=== PATIENT | female | born 1950 | race Caucasian/White ===

== ENCOUNTER 2019-01-29 11:05 | Outpatient (RCR) | payer MEDICARE, OTHER, SELFPAY | END 2019-02-19 00:01 | LOC: GILAB 11:05 | PROVIDERS: Family Provider Internal Medicine; Visit Provider Specialist | DX: G61.81 Chronic inflammatory demyelinating polyneuritis (principal) | CPT/HCPCS: 96365 ×4; 96366; G0463 ×4; J1561 ×4 ==

== ENCOUNTER 2019-03-13 11:00 | Outpatient (RCR) | payer MEDICARE, OTHER, SELFPAY ==
[2019-03-12 11:35] VITALS: BP 161/88; PULSE 82; RESP 18; TEMP 36.4; O2SAT 93
[2019-03-12 12:16] VITALS: BMI 29.0
--- NOTE | 2019-03-12 12:26 | SUR.OPER ---
IMMUNE GLOBULIN 34GMS INFUSION STARTED AT 11:55 AT 180MLS/HR.
[2019-03-12 12:31] VITALS: BP 148/90; PULSE 66; RESP 18; TEMP 36.7; O2SAT 93
[2019-03-13 11:18] VITALS: BP 153/98; PULSE 90; RESP 20; TEMP 36.8; O2SAT 95
[2019-03-13 11:44] VITALS: BMI 29.0
[2019-03-13 13:54] VITALS: BP 160/98; PULSE 73; RESP 18; TEMP 36.7; O2SAT 95
== END 2019-03-22 23:59 | disposition home or self-care (01) ==
LOC: GILAB 11:00
PROVIDERS: Family Provider Internal Medicine; Visit Provider Specialist
DX: G61.81 Chronic inflammatory demyelinating polyneuritis (principal)
CPT/HCPCS: 96365; 96366; J1561

== ENCOUNTER 2019-04-02 11:21 | Outpatient (RCR) | payer MEDICARE, OTHER, SELFPAY ==
[2019-04-02 11:40] VITALS: BP 161/95; PULSE 64; RESP 20; TEMP 36.6; O2SAT 95
[2019-04-02 11:45] VITALS: BMI 29.6
[2019-04-03 11:14] VITALS: BP 160/98; PULSE 67; RESP 18; TEMP 36.6; O2SAT 95
== END 2019-04-20 23:59 | disposition home or self-care (01) ==
LOC: GILAB 11:21
PROVIDERS: Family Provider Internal Medicine; PCP Specialist; Visit Provider Specialist
DX: G61.81 Chronic inflammatory demyelinating polyneuritis (principal)
CPT/HCPCS: 96365; J1561

== ENCOUNTER 2019-04-23 10:53 | Outpatient (RCR) | payer MEDICARE, OTHER, SELFPAY ==
[2019-04-23 11:18] VITALS: BP 162/76; PULSE 85; RESP 18; TEMP 36.3; O2SAT 95; BMI 29.9
[2019-04-24 11:00] VITALS: BP 182/98; PULSE 82; RESP 18; TEMP 37.3; O2SAT 94
== END 2019-05-21 23:59 | disposition home or self-care (01) ==
LOC: GILAB 10:53
PROVIDERS: Family Provider Internal Medicine; PCP Specialist; Visit Provider Specialist
DX: G61.81 Chronic inflammatory demyelinating polyneuritis (principal)
CPT/HCPCS: 96365; 96366; J1561

== ENCOUNTER 2019-07-16 10:59 | Outpatient (RCR) | payer MEDICARE, OTHER, SELFPAY ==
[2019-06-26 11:30] VITALS: BP 155/102; PULSE 73; RESP 18; TEMP 36.3; O2SAT 95; BMI 29.9
[2019-06-27 12:17] VITALS: BP 170/92; PULSE 67; RESP 16; TEMP 37.3
[2019-07-16 11:35] VITALS: BP 149/88; PULSE 73; RESP 18; TEMP 36.6; O2SAT 95
[2019-07-17 11:31] VITALS: BP 119/89; PULSE 76; RESP 18; TEMP 36.2; O2SAT 92
== END 2019-07-21 23:59 | disposition home or self-care (01) ==
LOC: GILAB 10:59
PROVIDERS: Visit Provider Specialist
DX: G61.81 Chronic inflammatory demyelinating polyneuritis (principal)
CPT/HCPCS: 96365; 96366; 96367; J1561

== ENCOUNTER 2019-08-07 11:43 | Outpatient (RCR) | payer MEDICARE, OTHER, SELFPAY ==
[2019-08-07 12:03] VITALS: BP 160/94; PULSE 74; RESP 16; TEMP 37.2; O2SAT 93
[2019-08-08 12:00] VITALS: BP 158/100; PULSE 90; RESP 18; TEMP 36.6; O2SAT 95
== END 2019-08-20 23:59 | disposition home or self-care (01) ==
LOC: GILAB 11:43
PROVIDERS: PCP Internal Medicine; Visit Provider Specialist
DX: G61.81 Chronic inflammatory demyelinating polyneuritis (principal)
CPT/HCPCS: 96365; J1561

== ENCOUNTER 2019-08-28 11:23 | Outpatient (RCR) | payer MEDICARE, OTHER, SELFPAY ==
[2019-08-28 11:50] VITALS: BP 165/110; PULSE 78; RESP 18; TEMP 37.3; O2SAT 95; BMI 30.7
[2019-09-18 11:35] VITALS: BP 160/95; PULSE 77; RESP 18; TEMP 36.6; O2SAT 95
== END 2019-09-20 23:59 | disposition home or self-care (01) ==
LOC: GILAB 11:23
PROVIDERS: PCP Internal Medicine; Visit Provider Specialist
DX: G61.81 Chronic inflammatory demyelinating polyneuritis (principal)
CPT/HCPCS: 96365; 96366; J1561

== ENCOUNTER 2019-10-09 11:14 | Outpatient (RCR) | payer MEDICARE, OTHER, SELFPAY ==
[2019-10-09 11:50] VITALS: BP 175/107; PULSE 70; RESP 18; TEMP 36.4; O2SAT 94; BMI 30.7
== END 2019-10-21 23:59 | disposition home or self-care (01) ==
LOC: GILAB 11:14
PROVIDERS: PCP Internal Medicine; Visit Provider Specialist
DX: G61.81 Chronic inflammatory demyelinating polyneuritis (principal)
CPT/HCPCS: 96365; 96366; J1561

== ENCOUNTER 2019-11-20 11:09 | Outpatient (RCR) | payer MEDICARE, OTHER, SELFPAY ==
[2019-10-30 11:59] VITALS: BP 137/85; PULSE 85; RESP 18; TEMP 36.8; O2SAT 93
[2019-10-30 14:29] VITALS: BMI 30.7
[2019-11-20 12:12] VITALS: BP 169/100; PULSE 95; RESP 18; TEMP 36.2; O2SAT 94
--- NOTE | 2019-11-20 12:16 | PC.NURSE ---
PATIENT TOOK BOTH PRE-MEDICATIONS (TYLENOL AND BENADRYL) BEFORE COMING FOR HER INFUSION.
== END 2019-11-20 23:59 | disposition home or self-care (01) ==
LOC: OPS 11:09
PROVIDERS: PCP Internal Medicine; Visit Provider Specialist
DX: G61.81 Chronic inflammatory demyelinating polyneuritis (principal)
CPT/HCPCS: 96365; 96366; J1561

== ENCOUNTER 2019-12-11 11:10 | Outpatient (RCR) | payer MEDICARE, OTHER, SELFPAY ==
[2019-12-11 11:36] VITALS: BP 176/114; PULSE 83; RESP 18; TEMP 36.6; O2SAT 94
== END 2019-12-21 23:59 | disposition home or self-care (01) ==
LOC: OPS 11:10
PROVIDERS: PCP Internal Medicine; Visit Provider Specialist
DX: G61.81 Chronic inflammatory demyelinating polyneuritis (principal)
CPT/HCPCS: 96365; 96366; J1561

== ENCOUNTER 2020-01-01 11:17 | Outpatient (RCR) | payer MEDICARE, OTHER, SELFPAY ==
[2020-01-01 11:53] VITALS: BP 157/103; PULSE 70; RESP 18; TEMP 36.7; O2SAT 96; BMI 30.7
== END 2020-01-20 23:59 | disposition home or self-care (01) ==
LOC: OPS 11:17
PROVIDERS: PCP Internal Medicine; Visit Provider Specialist
DX: G61.81 Chronic inflammatory demyelinating polyneuritis (principal)
CPT/HCPCS: 96365; 96366; J1561

== ENCOUNTER 2020-02-12 11:25 | Outpatient (RCR) | payer MEDICARE, OTHER, SELFPAY ==
[2020-02-12 10:45] VITALS: BMI 30.7
[2020-02-12 11:47] VITALS: BP 159/93; PULSE 76; RESP 18; TEMP 36.1; O2SAT 91
== END 2020-02-20 23:59 | disposition home or self-care (01) ==
LOC: OPS 11:25
PROVIDERS: PCP Internal Medicine; Visit Provider Specialist
DX: G61.81 Chronic inflammatory demyelinating polyneuritis (principal)
CPT/HCPCS: 96365; 96366; J1561

== ENCOUNTER 2020-03-04 11:20 | Outpatient (RCR) | payer MEDICARE, OTHER, SELFPAY ==
[2020-03-04 12:00] VITALS: BP 149/87; PULSE 79; RESP 18; TEMP 36.3; O2SAT 93
== END 2020-03-22 23:59 | disposition home or self-care (01) ==
LOC: OPS 11:20
PROVIDERS: PCP Internal Medicine; Visit Provider Specialist
DX: G61.81 Chronic inflammatory demyelinating polyneuritis (principal)
CPT/HCPCS: 96365; 96366; J1561

== ENCOUNTER 2020-03-25 12:08 | Outpatient (RCR) | payer MEDICARE, OTHER, SELFPAY ==
[2020-03-25 11:55] VITALS: BP 158/91; PULSE 116; RESP 18; TEMP 36.3; O2SAT 96
[2020-03-25 12:14] VITALS: BP 130/80; PULSE 89; RESP 18; TEMP 36.6; O2SAT 96
[2020-04-15 11:23] VITALS: BP 149/91; PULSE 83; RESP 18; TEMP 36.3; O2SAT 95
== END 2020-04-19 23:59 | disposition home or self-care (01) ==
LOC: OPS 12:08
PROVIDERS: PCP Internal Medicine; Visit Provider Specialist
DX: G61.81 Chronic inflammatory demyelinating polyneuritis (principal)
CPT/HCPCS: 96365; 96366; J1561

== ENCOUNTER 2020-04-15 11:00 | Outpatient (CLI) | payer MEDICARE, OTHER, SELFPAY ==
[2020-04-15 11:05] VITALS: BP 149/91; PULSE 83; RESP 18; TEMP 36.3; O2SAT 95
== END 2020-04-15 11:01 | disposition home or self-care (01) ==
LOC: OPS 11:00
PROVIDERS: PCP Internal Medicine; Visit Provider Specialist
DX: G61.81 Chronic inflammatory demyelinating polyneuritis (principal)
CPT/HCPCS: 96365; 96366; J1561

== ENCOUNTER → 2020-05-06 10:49 | Day surgery (SDC) | payer MEDICARE, OTHER, SELFPAY ==
[2020-05-06 10:53] VITALS: BMI 29.7
[2020-05-06 11:02] VITALS: BP 158/95; PULSE 81; RESP 18; TEMP 35.9; O2SAT 93
[2020-05-06 11:48] VITALS: BP 154/89; PULSE 67; RESP 18; O2SAT 91
== END ==
PROVIDERS: PCP Internal Medicine; Visit Provider Specialist
DX: G61.81 Chronic inflammatory demyelinating polyneuritis (principal)
CPT/HCPCS: 96365; 96366; J1561

== ENCOUNTER 2020-06-17 10:48 | Outpatient (RCR) | payer MEDICARE, OTHER, SELFPAY ==
[2020-05-27 12:14] VITALS: BP 150/90; PULSE 95; RESP 18; TEMP 36.1; O2SAT 94
--- NOTE | 2020-05-27 12:15 | PC.NURSE ---
Pt took Tylenol and Benadryl at home prior to coming in for IVIG infusion.
[2020-06-17 11:00] VITALS: BP 154/78; PULSE 76; RESP 18; TEMP 36.4; O2SAT 96
[2020-06-17 11:21] VITALS: BP 154/78; PULSE 76; RESP 18; TEMP 36.4; O2SAT 96
== END 2020-06-19 23:59 | disposition home or self-care (01) ==
LOC: OPS 10:48
PROVIDERS: PCP Internal Medicine; Visit Provider Specialist
DX: G61.81 Chronic inflammatory demyelinating polyneuritis (principal)
CPT/HCPCS: 96365; 96366; J1561

== ENCOUNTER 2020-07-08 11:00 | Outpatient (RCR) | payer MEDICARE, OTHER, SELFPAY ==
[2020-07-08 11:26] VITALS: BP 149/89; PULSE 81; RESP 18; TEMP 36.7; O2SAT 94
== END 2020-07-20 23:59 | disposition home or self-care (01) ==
LOC: GILAB 11:00
PROVIDERS: PCP Internal Medicine; Visit Provider Specialist
DX: G61.81 Chronic inflammatory demyelinating polyneuritis (principal)
CPT/HCPCS: 96365; 96366; J1561

== ENCOUNTER 2020-08-19 11:02 | Outpatient (RCR) | payer MEDICARE, OTHER, SELFPAY ==
[2020-07-29 11:06] VITALS: BMI 29.7
[2020-07-29 11:09] VITALS: BP 174/108; PULSE 67; RESP 18; TEMP 36.4; O2SAT 95
[2020-08-19 11:21] VITALS: BP 146/88; PULSE 91; RESP 18; TEMP 36.3; O2SAT 94
== END 2020-08-19 23:59 | disposition home or self-care (01) ==
LOC: GILAB 11:02
PROVIDERS: PCP Internal Medicine; Visit Provider Specialist
DX: G61.81 Chronic inflammatory demyelinating polyneuritis (principal)
CPT/HCPCS: 96365; 96366; J1561

== ENCOUNTER 2020-09-09 10:49 | Outpatient (RCR) | payer MEDICARE, OTHER, SELFPAY ==
[2020-09-09 11:21] VITALS: BP 157/106; PULSE 72; RESP 18; TEMP 36.1; O2SAT 95
== END 2020-09-19 23:59 | disposition home or self-care (01) ==
LOC: GILAB 10:49
PROVIDERS: PCP Internal Medicine; Visit Provider Specialist
DX: G61.81 Chronic inflammatory demyelinating polyneuritis (principal)
CPT/HCPCS: 96365; 96366; J1561

== ENCOUNTER 2020-10-21 10:54 | Outpatient (CLI) | payer MEDICARE, OTHER, SELFPAY ==
[2020-10-21 11:17] VITALS: BP 157/103; PULSE 81; RESP 18; TEMP 36.4; O2SAT 93; BMI 29.7
--- NOTE | 2020-10-21 13:36 | PC.NURSE ---
Pt took Tylenol and Benadryl at home before coming into GI Lab.
== END 2020-10-21 10:55 | disposition home or self-care (01) ==
PROVIDERS: PCP Internal Medicine; Visit Provider Specialist
DX: G61.81 Chronic inflammatory demyelinating polyneuritis (principal)
CPT/HCPCS: 96365; 96366; J1561

== ENCOUNTER 2020-11-11 11:29 | Outpatient (CLI) | payer MEDICARE, OTHER, SELFPAY ==
[2020-11-11 11:53] VITALS: BP 159/90; PULSE 81; RESP 18; TEMP 36.5; O2SAT 95; BMI 29.7
== END 2020-11-11 11:30 | disposition home or self-care (01) ==
LOC: GILAB 11:35
PROVIDERS: PCP Internal Medicine; Visit Provider Specialist
DX: G61.81 Chronic inflammatory demyelinating polyneuritis (principal)
CPT/HCPCS: 96365; 96366; J1561

== ENCOUNTER 2020-12-02 11:06 | Outpatient (CLI) | payer MEDICARE, OTHER, SELFPAY ==
[2020-12-02 11:38] VITALS: BMI 29.7
[2020-12-02 11:39] VITALS: BP 116/81; PULSE 77; RESP 18; TEMP 36.4; O2SAT 92
== END 2020-12-02 11:07 | disposition home or self-care (01) ==
LOC: OPS 11:16 → GILAB 11:16
PROVIDERS: PCP Internal Medicine; Visit Provider Specialist
DX: G61.81 Chronic inflammatory demyelinating polyneuritis (principal)
CPT/HCPCS: 96365; 96366; J1561

== ENCOUNTER 2020-12-23 10:56 | Outpatient (CLI) | payer MEDICARE, OTHER, SELFPAY ==
[2020-12-23 11:39] VITALS: BP 139/92; PULSE 97; RESP 18; TEMP 36.1; O2SAT 94
== END 2020-12-23 10:57 | disposition home or self-care (01) ==
LOC: GILAB 10:57
PROVIDERS: PCP Internal Medicine; Visit Provider Specialist
DX: G61.81 Chronic inflammatory demyelinating polyneuritis (principal)
CPT/HCPCS: 96365; 96366; J1561

== ENCOUNTER → 2021-01-13 11:02 | Day surgery (SDC) | payer MEDICARE, OTHER, SELFPAY ==
[2021-01-13 11:30] VITALS: BP 194/112; PULSE 83; RESP 20; TEMP 36.1; O2SAT 92; BMI 29.7
== END ==
PROVIDERS: PCP Internal Medicine; Visit Provider Specialist
DX: G61.81 Chronic inflammatory demyelinating polyneuritis (principal)
CPT/HCPCS: 96365; 96366; J1561

== ENCOUNTER → 2021-02-03 10:53 | Day surgery (SDC) | payer MEDICARE, OTHER, SELFPAY ==
[2021-02-03 11:16] VITALS: BP 168/93; PULSE 72; RESP 18; TEMP 36.7; O2SAT 94
--- NOTE | 2021-02-03 13:32 | PC.NURSE ---
Pt states she took Tylenol and Benadryl prior to coming to GI lab for her IVIG infusion.
== END ==
PROVIDERS: PCP Internal Medicine; Visit Provider Specialist
DX: G61.81 Chronic inflammatory demyelinating polyneuritis (principal)
CPT/HCPCS: 96365; 96366; J1561

== ENCOUNTER → 2021-02-10 10:26 | Outpatient (BNVA) | payer MEDICARE, OTHER, SELFPAY | PROVIDERS: PCP Internal Medicine; Visit Provider Specialist | DX: G61.81 Chronic inflammatory demyelinating polyneuritis (principal); Z71.85 Encounter for immunization safety counseling | CPT/HCPCS: 99214 ==

== ENCOUNTER 2021-03-31 11:08 | Outpatient (CLI) | payer MEDICARE, OTHER, SELFPAY ==
[2021-03-31 11:34] VITALS: BP 172/103; PULSE 75; RESP 18; TEMP 35.8; O2SAT 95
[2021-03-31 14:59] LABS: Basophils % 0.4 %; Eosinophils # 0.3 10^3/uL (0.0-0.8); Eosinophils % 4.4 %; Hematocrit 45.4 % (37.0-47.0); Hemoglobin 15.1 g/dL (11.5-15.3); Lymphocytes # 1.5 10^3/uL (0.8-4.8); Lymphocytes % 27.2 %; Mean Corpuscular HGB Conc 33.3 g/dL (30.0-36.0); Mean Corpuscular Hemoglobin 31.9 pg (28.0-34.0); Mean Corpuscular Volume 95.8 fl (81-99); Monocytes # 0.4 10^3/uL (0.2-0.9); Monocytes % 6.9 %; Neutrophils # 3.41 10^3/uL (1.8-7.7); Neutrophils % 60.7 %; Nucleated Red Blood Cells % 0 %; Platelet Count 179 10^3/cmm (130-400); Red Blood Count 4.74 10^6/uL (4.1-5.3); Red Cell Distribution Width 13.8 % (12.1-15.1); White Blood Count 5.6 10^3/uL (4.0-10.0)
[2021-03-31 15:19] LABS: Alanine Aminotransferase 33 U/L (0-33); Albumin Level 3.4 g/dL (3.5-5.2); Alkaline Phosphatase 86 IU/L (35-105); Aspartate Amino Transferase 49 U/L (0-32); Blood Urea Nitrogen 11 mg/dL (8-23); Calcium 9.2 mg/dL (8.5-10.5); Carbon Dioxide 24 mmol/L (22-29); Chloride 100 mmol/L (98-107); Globulin 5.3 g/dL (1.3-4.6); Glucose 135 mg/dL (65-115); Osmolality Calculated 279 mOsm/kg (285-295); Sodium 134 mmol/L (136-145); Total Bilirubin 0.5 mg/dL (0.15-1.2); Total Protein 8.7 g/dL (6.6-8.7)
== END 2021-03-31 11:09 | disposition home or self-care (01) ==
PROVIDERS: PCP Internal Medicine; Visit Provider Specialist
DX: G61.81 Chronic inflammatory demyelinating polyneuritis (principal)
CPT/HCPCS: 80053; 85025; 96365; 96366; J1561

== ENCOUNTER → 2021-04-28 10:45 | Day surgery (SDC) | payer MEDICARE, OTHER, SELFPAY ==
[2021-04-28 11:21] VITALS: BP 141/69; PULSE 76; RESP 18; TEMP 36.4; O2SAT 93
== END ==
PROVIDERS: PCP Internal Medicine; Visit Provider Specialist
DX: G61.81 Chronic inflammatory demyelinating polyneuritis (principal)
CPT/HCPCS: 96365; 96366; J1561

== ENCOUNTER → 2021-05-26 10:50 | Day surgery (SDC) | payer MEDICARE, OTHER, SELFPAY ==
[2021-05-26 11:26] VITALS: BP 149/88; PULSE 77; RESP 18; TEMP 36.4; O2SAT 95
== END ==
PROVIDERS: PCP Internal Medicine; Visit Provider Specialist
DX: G61.81 Chronic inflammatory demyelinating polyneuritis (principal)
CPT/HCPCS: 96365; 96366; J1561

== ENCOUNTER → 2021-06-23 10:46 | Day surgery (SDC) | payer MEDICARE, OTHER, SELFPAY ==
[2021-06-23 11:07] VITALS: BP 169/89; PULSE 87; RESP 18; TEMP 36.4; O2SAT 93
== END ==
PROVIDERS: PCP Internal Medicine; Visit Provider Specialist
DX: G61.81 Chronic inflammatory demyelinating polyneuritis (principal)
CPT/HCPCS: 96365; 96366; J1561

== ENCOUNTER → 2021-07-21 10:53 | Day surgery (SDC) | payer MEDICARE, OTHER, SELFPAY ==
[2021-07-21 11:21] VITALS: BP 183/86; PULSE 82; RESP 18; TEMP 35.9; O2SAT 92
== END ==
PROVIDERS: PCP Internal Medicine; Visit Provider Specialist
DX: G61.81 Chronic inflammatory demyelinating polyneuritis (principal)
CPT/HCPCS: 96365; 96366; J1561

== ENCOUNTER → 2021-08-18 10:59 | Day surgery (SDC) | payer MEDICARE, OTHER, SELFPAY ==
[2021-08-18 11:41] VITALS: BP 186/98; PULSE 69; RESP 18; TEMP 36.1; O2SAT 94
== END ==
PROVIDERS: PCP Internal Medicine; Visit Provider Specialist
DX: G61.81 Chronic inflammatory demyelinating polyneuritis (principal)
CPT/HCPCS: 96365; 96366; J1561

== ENCOUNTER → 2021-09-22 11:00 | Day surgery (SDC) | payer MEDICARE, OTHER, SELFPAY ==
[2021-09-22 11:34] VITALS: BP 147/61; PULSE 81; RESP 18; TEMP 36.1; O2SAT 94
[2021-09-22 11:45] LABS: Basophils % 0.5 %; Eosinophils # 0.2 10^3/uL (0.0-0.8); Eosinophils % 2.3 %; Hematocrit 49.9 % (37.0-47.0); Hemoglobin 16.8 g/dL (11.5-15.3); Lymphocytes # 2.6 10^3/uL (0.8-4.8); Lymphocytes % 35.9 %; Mean Corpuscular HGB Conc 33.7 g/dL (30.0-36.0); Mean Corpuscular Hemoglobin 31.9 pg (28.0-34.0); Mean Corpuscular Volume 94.7 fl (81-99); Mean Platelet Volume 10.9 fL (7.4-10.4); Monocytes # 0.6 10^3/uL (0.2-0.9); Monocytes % 8.8 %; Neutrophils # 3.81 10^3/uL (1.8-7.7); Neutrophils % 52.4 %; Nucleated Red Blood Cells % 0 %; Platelet Count 210 10^3/cmm (130-400); Red Blood Count 5.27 10^6/uL (4.1-5.3); Red Cell Distribution Width 13.4 % (12.1-15.1); White Blood Count 7.3 10^3/uL (4.0-10.0)
[2021-09-22 11:52] LABS: Alanine Aminotransferase 33 U/L (0-33); Albumin Level 3.7 g/dL (3.5-5.2); Alkaline Phosphatase 111 IU/L (35-105); Anion Gap 15.1 (5-19); Aspartate Amino Transferase 45 U/L (0-32); Blood Urea Nitrogen 9 mg/dL (8-23); Calcium 9.4 mg/dL (8.5-10.5); Carbon Dioxide 27 mmol/L (22-29); Chloride 98 mmol/L (98-107); Globulin 3.6 g/dL (1.3-4.6); Glucose 205 mg/dL (65-115); Osmolality Calculated 287 mOsm/kg (285-295); Potassium 4.1 mmol/L (3.5-5.1); Sodium 136 mmol/L (136-145); Total Bilirubin 0.5 mg/dL (0.15-1.2); Total Protein 7.3 g/dL (6.6-8.7)
== END ==
PROVIDERS: PCP Internal Medicine; Visit Provider Specialist
DX: G61.81 Chronic inflammatory demyelinating polyneuritis (principal)
CPT/HCPCS: 80053; 85025; 96365; 96366; J1561

== ENCOUNTER → 2021-10-20 10:48 | Day surgery (SDC) | payer MEDICARE, OTHER, SELFPAY ==
[2021-10-20 11:10] VITALS: BP 140/85; PULSE 82; RESP 18; TEMP 36.1; O2SAT 95
== END ==
PROVIDERS: PCP Internal Medicine; Visit Provider Specialist
DX: G61.81 Chronic inflammatory demyelinating polyneuritis (principal)
CPT/HCPCS: 96365; 96366; J1561

== ENCOUNTER → 2021-11-17 10:57 | Day surgery (SDC) | payer MEDICARE, OTHER, SELFPAY ==
[2021-11-17 11:30] VITALS: BP 172/90; PULSE 81; RESP 18; TEMP 36.2; O2SAT 95
== END ==
PROVIDERS: PCP Internal Medicine; Visit Provider Specialist
DX: G61.81 Chronic inflammatory demyelinating polyneuritis (principal)
CPT/HCPCS: 96365; 96366; J1561

== ENCOUNTER → 2021-12-22 11:02 | Day surgery (SDC) | payer MEDICARE, OTHER, SELFPAY ==
[2021-12-22 11:42] VITALS: BP 121/75; PULSE 106; RESP 18; TEMP 36.3; O2SAT 99
== END ==
PROVIDERS: PCP Internal Medicine; Visit Provider Specialist
DX: G61.81 Chronic inflammatory demyelinating polyneuritis (principal)
CPT/HCPCS: 96365; 96366; J1561

== ENCOUNTER → 2022-01-19 10:52 | Day surgery (SDC) | payer MEDICARE, OTHER, SELFPAY ==
[2022-01-19 11:16] VITALS: BP 182/82; PULSE 77; RESP 18; TEMP 36.2; O2SAT 93
--- NOTE | 2022-01-19 13:30 | PC.NURSE ---
Pt noted to complain of nausea towards end of infusion. Rate slowed. Pt vomited small amount brown fluid. IVIG stopped. After 5 minutes and nausea subsiding, infusion resumed, again at slower rate. After 15 minutes, pt c/o nausea again. Infusion stopped with approximately 25 mL remaining of 900 mL dose. Pt observed for 10 minutes. States no further nausea. VSS. Pt off floor via wheelchair to be taken home by son.
== END ==
PROVIDERS: PCP Internal Medicine; Visit Provider Specialist
DX: G61.81 Chronic inflammatory demyelinating polyneuritis (principal)
CPT/HCPCS: 96365; 96366; J1561

== ENCOUNTER → 2022-02-02 14:45 | Outpatient (BNVA) | payer MEDICARE, OTHER, SELFPAY | PROVIDERS: PCP Internal Medicine; Visit Provider Specialist | DX: G61.81 Chronic inflammatory demyelinating polyneuritis (principal); I10 Essential (primary) hypertension; I25.10 Atherosclerotic heart disease of native coronary artery without angina pectoris; R73.9 Hyperglycemia, unspecified | CPT/HCPCS: 99214 ==

== ENCOUNTER → 2022-02-16 10:58 | Day surgery (SDC) | payer MEDICARE, OTHER, SELFPAY ==
[2022-02-16 11:12] VITALS: BP 166/119; PULSE 80; RESP 18; TEMP 36.3; O2SAT 96
== END ==
PROVIDERS: PCP Internal Medicine; Visit Provider Specialist
DX: G61.81 Chronic inflammatory demyelinating polyneuritis (principal)
CPT/HCPCS: 96365; 96366; J1561

== ENCOUNTER → 2022-03-01 15:03 | Outpatient (BNVA) | payer MEDICARE, OTHER, SELFPAY | PROVIDERS: PCP Internal Medicine; Visit Provider Family Medicine | DX: D75.1 Secondary polycythemia (principal); R73.9 Hyperglycemia, unspecified; I25.10 Atherosclerotic heart disease of native coronary artery without angina pectoris | CPT/HCPCS: 80053; 80061; 83036; 85025 ==

== ENCOUNTER → 2022-03-30 11:19 | Day surgery (SDC) | payer MEDICARE, OTHER, SELFPAY ==
[2022-03-30 11:38] VITALS: BP 147/98; PULSE 82; RESP 18; TEMP 36.2; O2SAT 98
== END ==
PROVIDERS: PCP Family Medicine; Visit Provider Specialist
DX: G61.81 Chronic inflammatory demyelinating polyneuritis (principal)
CPT/HCPCS: 96365; 96366; J1561

== ENCOUNTER → 2022-04-27 11:03 | Day surgery (SDC) | payer MEDICARE, OTHER, SELFPAY ==
[2022-04-27 11:31] VITALS: BP 183/98; PULSE 74; RESP 18; TEMP 36; O2SAT 96
== END ==
PROVIDERS: PCP Family Medicine; Visit Provider Specialist
DX: G61.81 Chronic inflammatory demyelinating polyneuritis (principal)
CPT/HCPCS: 96365; 96366; J1561

== ENCOUNTER → 2022-05-23 08:58 | Outpatient (BNVA) | payer MEDICARE, OTHER, SELFPAY | PROVIDERS: PCP Family Medicine; Visit Provider Family Medicine | DX: R29.90 Unspecified symptoms and signs involving the nervous system (principal); G61.81 Chronic inflammatory demyelinating polyneuritis; I10 Essential (primary) hypertension; I25.10 Atherosclerotic heart disease of native coronary artery without angina pectoris; E11.9 Type 2 diabetes mellitus without complications | CPT/HCPCS: 80053; 83036; 85025 ==

== ENCOUNTER → 2022-05-25 10:45 | Day surgery (SDC) | payer MEDICARE, OTHER, SELFPAY ==
[2022-05-25 10:58] VITALS: BP 164/92; PULSE 74; RESP 18; TEMP 36.4; O2SAT 94
== END ==
PROVIDERS: PCP Family Medicine; Visit Provider Specialist
DX: G61.81 Chronic inflammatory demyelinating polyneuritis (principal)
CPT/HCPCS: 96365; 96366; J1561

== ENCOUNTER → 2022-06-15 14:23 | Outpatient (BNVA) | payer MEDICARE, OTHER, SELFPAY | PROVIDERS: PCP Family Medicine; Visit Provider Specialist | DX: I25.10 Atherosclerotic heart disease of native coronary artery without angina pectoris (principal); I10 Essential (primary) hypertension; E78.5 Hyperlipidemia, unspecified | CPT/HCPCS: 99214 ==

== ENCOUNTER → 2022-06-22 11:05 | Day surgery (SDC) | payer MEDICARE, OTHER, SELFPAY ==
[2022-06-22 11:33] VITALS: BP 139/84; PULSE 67; RESP 18; TEMP 36.6; O2SAT 91
== END ==
PROVIDERS: PCP Family Medicine; Visit Provider Specialist
DX: G61.81 Chronic inflammatory demyelinating polyneuritis (principal); Z79.899 Other long term (current) drug therapy
CPT/HCPCS: 96365; 96366; J1561

== ENCOUNTER 2022-07-15 12:43 | Outpatient (CLI) | payer MEDICARE, OTHER, SELFPAY ==
--- NOTE | 2022-07-15 13:00 | USCV_ITS ---
Melyssa Swartz Age: 71 Gender: F : 1950 Exam Date: 07/15/2022 13:25 Ordering Phys: Lalo Minor MD ([email or web address]) Technologist: Halie Oliver Exam Location: [facility] – [place] Indication: SOB, murmur BP: 118 / 78 HR: 71 Rhythm: Sinus Technical Quality: Adequate MEASUREMENTS (Male / Female) Normal Values 2D ECHO LV Diastolic Diameter PLAX 3.6 cm 4.2 - 5.9 / 3.9 - 5.3 cm LV Systolic Diameter PLAX 2.3 cm IVS Diastolic Thickness 1.1 cm 0.6 - 1.0 / 0.6 - 0.9 cm IVS Systolic Thickness 1.1 cm LVPW Diastolic Thickness 1.0 cm 0.6 - 1.0 / 0.6 - 0.9 cm LVPW Systolic Thickness 2.0 cm LVOT Diameter 2.0 cm LV Ejection Fraction 2D Teich 66.0 % LV Ejection Fraction MOD 2C 55.0 % LV Ejection Fraction 2C AL 54.2 % LA Diameter 3.7 cm LA Width 3.1 cm LA Height 4.7 cm RA Width 3.1 cm RA Height 4.2 cm Aorta at Sinotubular Diameter 2.4 cm IVC Diameter 1.1 cm M-MODE Aortic Annulus Diameter 2.8 cm LA Ao Ratio MM 1.3 MV E Point Septal Separation 0.6 cm DOPPLER AV Peak Velocity 202.0 cm/s LVOT Peak Velocity 84.0 cm/s AV Area Cont Eq vti 1.2 cm squared AV Area Cont Eq pk 1.4 cm squared MV Peak Velocity 132.0 cm/s MV Area PHT 3.2 cm squared Mitral E to A Ratio 0.8 MV E' Velocity 41.5 cm/s Mitral E to MV E' Ratio 13.6 Mitral E to LV E' Lateral Ratio 11.2 Mitral E to LV E' Septal Ratio 17.7 TR Peak Velocity 210.8 cm/s TR Peak Gradient 17.8 mmHg Right Atrial Pressure 5.0 mmHg Pulmonary Artery Systolic Pressu 22.8 mmHg PV Peak Velocity 113.0 cm/s RV Acceleration Time 0.1 s RV Ejection Time 0.3 s RV AcT/ET 0.2 FINDINGS Left Ventricle Left ventricle is normal in size. LV systolic function is normal with EF of 55 to 60%. No regional wall motion abnormalities are seen. Grade 1 diastolic dysfunction. Right Ventricle Normal in size and function Right Atrium Normal in size Left Atrium Normal in size Mitral Valve Mitral valve is thickened and calcified. Mild mitral regurgitation. Aortic Valve Aortic valve is thickened and calcified. Mild aortic stenosis with aortic valve area 1.16 cm squared and mean gradient across aortic valve of 7.7 mmHg. Tricuspid Valve Mild tricuspid regurgitation. Pulmonary artery systolic pressure is normal. Pulmonic Valve Not well-visualized. Pericardium Normal Aorta Normal in size IVC Appears to be normal CONCLUSIONS LV systolic function is normal with EF of 55 to 60%. Grade 1 diastolic dysfunction. Mild mitral regurgitation. Aortic valve is thickened and calcified. Mild aortic stenosis. Mild tricuspid regurgitation. Compared to prior echocardiogram from 2019, patient now has mild aortic stenosis. Tone Lang MD (Electronically Signed) Final Date: 15 Jul 2022 15:05 S
== END 2022-07-15 12:44 | disposition home or self-care (01) ==
LOC: RAD 12:45
PROVIDERS: PCP Family Medicine; Visit Provider Specialist
DX: R06.02 Shortness of breath (principal); R01.1 Cardiac murmur, unspecified; I08.3 Combined rheumatic disorders of mitral, aortic and tricuspid valves
CPT/HCPCS: 93306

== ENCOUNTER → 2022-07-20 10:44 | Day surgery (SDC) | payer MEDICARE, OTHER, SELFPAY ==
[2022-07-20 11:01] VITALS: BP 171/89; PULSE 68; RESP 18; TEMP 35.9; O2SAT 91
== END ==
PROVIDERS: PCP Family Medicine; Visit Provider Specialist
DX: G61.81 Chronic inflammatory demyelinating polyneuritis (principal)
CPT/HCPCS: 96365; 96366; J1561

== ENCOUNTER → 2022-08-17 10:44 | Day surgery (SDC) | payer MEDICARE, OTHER, SELFPAY ==
[2022-08-17 11:13] VITALS: BP 187/97; PULSE 65; RESP 18; TEMP 36.4; O2SAT 95
--- NOTE | 2022-08-17 14:10 | PC.NURSE ---
Pt to GI infusions for IVIG. Tolerated procedure well. No reaction noted.
== END ==
PROVIDERS: PCP Family Medicine; Visit Provider Specialist
DX: G61.81 Chronic inflammatory demyelinating polyneuritis (principal); Z79.899 Other long term (current) drug therapy
CPT/HCPCS: 96365; 96366; J1561

== ENCOUNTER → 2022-08-30 15:56 | Outpatient (BNVA) | payer MEDICARE, OTHER, SELFPAY | PROVIDERS: PCP Family Medicine; Visit Provider Family Medicine | DX: D75.1 Secondary polycythemia (principal); R74.8 Abnormal levels of other serum enzymes; D64.9 Anemia, unspecified; E78.5 Hyperlipidemia, unspecified | CPT/HCPCS: 80053; 80061; 82728; 83550; 85025 ==

== ENCOUNTER → 2022-09-14 10:49 | Day surgery (SDC) | payer MEDICARE, OTHER, SELFPAY ==
[2022-09-14 10:57] VITALS: BP 177/93; PULSE 76; RESP 18; TEMP 36.6; O2SAT 93
== END ==
PROVIDERS: PCP Family Medicine; Visit Provider Specialist
DX: G61.81 Chronic inflammatory demyelinating polyneuritis (principal); Z79.899 Other long term (current) drug therapy
CPT/HCPCS: 96365; 96366; J1561

== ENCOUNTER → 2022-10-12 10:52 | Day surgery (SDC) | payer MEDICARE, OTHER, SELFPAY ==
[2022-10-12 11:04] VITALS: BP 166/76; PULSE 70; RESP 18; TEMP 36.6; O2SAT 94
== END ==
PROVIDERS: PCP Family Medicine; Visit Provider Specialist
DX: G61.81 Chronic inflammatory demyelinating polyneuritis (principal); Z79.899 Other long term (current) drug therapy
CPT/HCPCS: 96365; 96366; J1561

== ENCOUNTER → 2022-11-09 11:01 | Day surgery (SDC) | payer MEDICARE, OTHER, SELFPAY ==
[2022-11-09 11:10] VITALS: BP 138/106; PULSE 85; RESP 18; TEMP 36.2; O2SAT 95
== END ==
PROVIDERS: PCP Family Medicine; Visit Provider Specialist
DX: G61.81 Chronic inflammatory demyelinating polyneuritis (principal)
CPT/HCPCS: 96365; 96366; J1561

== ENCOUNTER → 2022-12-07 10:54 | Day surgery (SDC) | payer MEDICARE, OTHER, SELFPAY ==
[2022-12-07 11:00] VITALS: BP 158/84; PULSE 66; RESP 18; TEMP 36.2; O2SAT 92
== END ==
PROVIDERS: PCP Family Medicine; Visit Provider Specialist
DX: G61.81 Chronic inflammatory demyelinating polyneuritis (principal)
CPT/HCPCS: 96365; 96366; J1561

== ENCOUNTER → 2022-12-14 13:31 | Outpatient (BNVA) | payer MEDICARE, OTHER, SELFPAY | PROVIDERS: PCP Family Medicine; Visit Provider Internal Medicine | DX: I25.10 Atherosclerotic heart disease of native coronary artery without angina pectoris (principal); I10 Essential (primary) hypertension; E78.5 Hyperlipidemia, unspecified | CPT/HCPCS: 99214 ==

== ENCOUNTER 2023-01-04 11:01 | Oncology outpatient (recurring) (ONCR) | payer MEDICARE, OTHER, SELFPAY ==
[2023-01-04 15:20] VITALS: BP 176/96; PULSE 83; RESP 16; TEMP 36.8; O2SAT 96
== END 2023-01-04 23:59 | disposition home or self-care (01) ==
PROVIDERS: PCP Family Medicine; Visit Provider Specialist
DX: G61.81 Chronic inflammatory demyelinating polyneuritis (principal)
CPT/HCPCS: 96365; 96366; J1561

== ENCOUNTER 2023-02-01 11:11 | Oncology outpatient (recurring) (ONCR) | payer MEDICARE, OTHER, SELFPAY ==
[2023-02-01] VITALS (9 sets, daily range): BP systolic 117–165; BP diastolic 68–115; PULSE 70–81; RESP 16–17; TEMP 36.2–37.2; O2SAT 92–96
[2023-02-01] MEDS: sodium chloride 0.9% 250 ML 75 ML IV (12:23)
== END 2023-02-01 23:59 | disposition home or self-care (01) ==
PROVIDERS: PCP Family Medicine; Visit Provider Specialist
DX: G61.81 Chronic inflammatory demyelinating polyneuritis (principal)
CPT/HCPCS: 96365; 96366; J1561; J7050

== ENCOUNTER → 2023-03-01 13:11 | Outpatient (BNVA) | payer MEDICARE, OTHER, SELFPAY | PROVIDERS: PCP Family Medicine; Visit Provider Specialist | DX: G61.81 Chronic inflammatory demyelinating polyneuritis (principal); E11.9 Type 2 diabetes mellitus without complications; R74.8 Abnormal levels of other serum enzymes; K76.0 Fatty (change of) liver, not elsewhere classified; D75.1 Secondary polycythemia | CPT/HCPCS: 99213 ==

== ENCOUNTER 2023-03-30 12:30 | Oncology outpatient (recurring) (ONCR) | payer MEDICARE, OTHER, SELFPAY ==
[2023-03-29] VITALS (9 sets, daily range): BP systolic 116–172; BP diastolic 74–108; PULSE 62–80; RESP 16–17; TEMP 36.4–36.8; O2SAT 92–95
[2023-03-29] MEDS: immune globulin (Privigen ONC) 40 GM in empty flexible container 1 EACH IV (13:54)
[2023-03-29] MEDS: sodium chloride 0.9% 250 ML 50 ML IV (13:54)
[2023-03-30] VITALS (9 sets, daily range): BP systolic 133–187; BP diastolic 70–95; PULSE 63–73; RESP 16–17; TEMP 36–36.7; O2SAT 94–97
[2023-03-30] MEDS: immune globulin (Privigen ONC) 40 GM in empty flexible container 1 EACH IV (13:16)
[2023-03-30] MEDS: sodium chloride 0.9% 250 ML 75 ML IV (13:16)
== END 2023-03-30 23:59 | disposition home or self-care (01) ==
PROVIDERS: PCP Family Medicine; Visit Provider Specialist
DX: G61.81 Chronic inflammatory demyelinating polyneuritis (principal); Z53.9 Procedure and treatment not carried out, unspecified reason
CPT/HCPCS: 96365; 96366; J1459; J7050

== ENCOUNTER 2023-04-27 10:00 | Oncology outpatient (recurring) (ONCR) | payer MEDICARE, OTHER, SELFPAY ==
[2023-04-26] VITALS (8 sets, daily range): BP systolic 128–160; BP diastolic 76–91; PULSE 62–72; RESP 16–18; TEMP 36.4–36.7; O2SAT 91–99
[2023-04-26] MEDS: immune globulin (Privigen ONC) 40 GM in empty flexible container 1 EACH IV (10:50)
[2023-04-27 10:17] VITALS: BP 146/84; PULSE 68; RESP 17; O2SAT 92
[2023-04-27 10:50] VITALS: BP 130/82; PULSE 65; RESP 17; TEMP 36.8; O2SAT 92
[2023-04-27] MEDS: immune globulin (Privigen ONC) 40 GM in empty flexible container 1 EACH IV (10:52)
[2023-04-27 11:05] VITALS: BP 143/86; PULSE 63; RESP 18; TEMP 36.8; O2SAT 94
[2023-04-27 13:30] VITALS: BP 168/102; PULSE 72; RESP 18; TEMP 36.6; O2SAT 97
[2023-04-27 13:35] VITALS: BP 168/102; PULSE 72; RESP 16; RESP 18; TEMP 36.6; O2SAT 97; O2SAT 98
== END 2023-04-27 23:59 | disposition home or self-care (01) ==
PROVIDERS: PCP Family Medicine; Visit Provider Specialist
DX: G61.81 Chronic inflammatory demyelinating polyneuritis (principal); Z53.9 Procedure and treatment not carried out, unspecified reason
CPT/HCPCS: 96365; 96366; J1459

== ENCOUNTER 2023-05-25 10:00 | Oncology outpatient (recurring) (ONCR) | payer MEDICARE, OTHER, SELFPAY ==
[2023-05-24] VITALS (8 sets, daily range): BP systolic 128–174; BP diastolic 71–96; PULSE 64–81; RESP 16; TEMP 36.1–36.6; O2SAT 93–97
[2023-05-24] MEDS: immune globulin (Privigen ONC) 40 GM in empty flexible container 1 EACH 24.6999999999999993 GM IV (11:36)
[2023-05-25] VITALS (9 sets, daily range): BP systolic 123–149; BP diastolic 74–84; PULSE 64–83; RESP 16–17; TEMP 36.1–36.9; O2SAT 93–96
[2023-05-25] MEDS: immune globulin (Privigen ONC) 40 GM in empty flexible container 1 EACH 24.6000000000000014 GM IV (10:55)
== END 2023-05-25 23:59 | disposition home or self-care (01) ==
PROVIDERS: PCP Family Medicine; Visit Provider Specialist
DX: G61.81 Chronic inflammatory demyelinating polyneuritis (principal); Z53.9 Procedure and treatment not carried out, unspecified reason
CPT/HCPCS: 96365; 96366; J1459

== ENCOUNTER → 2023-06-14 10:02 | Outpatient (BNVA) | payer MEDICARE, SELFPAY | PROVIDERS: PCP Family Medicine; Visit Provider Nurse Practitioner Family | DX: I25.10 Atherosclerotic heart disease of native coronary artery without angina pectoris (principal); I10 Essential (primary) hypertension; I35.0 Nonrheumatic aortic (valve) stenosis | CPT/HCPCS: 99214 ==

== ENCOUNTER 2023-07-19 11:00 | Oncology outpatient (recurring) (ONCR) | payer MEDICARE, OTHER, SELFPAY ==
[2023-06-21] VITALS (9 sets, daily range): BP systolic 114–165; BP diastolic 63–95; PULSE 62–80; RESP 16; TEMP 36.1–36.4; O2SAT 92–98
[2023-06-21] MEDS: immune globulin (Privigen ONC) 40 GM in empty flexible container 1 EACH IV (11:13)
[2023-06-22 10:15] VITALS: BP 168/91; PULSE 86; RESP 16; TEMP 37; O2SAT 96
[2023-06-22 10:34] VITALS: BP 165/91; PULSE 88; RESP 16; TEMP 36.4; O2SAT 98
[2023-06-22] MEDS: immune globulin (Privigen ONC) 40 GM in empty flexible container 1 EACH 0.299999999999999989 GM IV (11:11)
[2023-06-22 13:58] VITALS: BP 151/86; PULSE 68; RESP 16; TEMP 36.4; O2SAT 96
[2023-07-19] VITALS (9 sets, daily range): BP systolic 132–181; BP diastolic 80–103; PULSE 66–78; RESP 16–17; TEMP 36.1–36.7; O2SAT 95–98
[2023-07-19] MEDS: immune globulin (Privigen ONC) 40 GM in empty flexible container 1 EACH 24.6000000000000014 GM IV (11:55)
== END 2023-07-19 23:59 | disposition home or self-care (01) ==
PROVIDERS: PCP Family Medicine; Visit Provider Specialist
DX: Z53.9 Procedure and treatment not carried out, unspecified reason (principal); G61.81 Chronic inflammatory demyelinating polyneuritis
CPT/HCPCS: 96365; 96366; J1459

== ENCOUNTER 2023-07-20 11:04 | Oncology outpatient (recurring) (ONCR) | payer MEDICARE, OTHER, SELFPAY ==
[2023-07-20 11:36] VITALS: BP 167/83; PULSE 75; RESP 16; TEMP 36.8; O2SAT 93
[2023-07-20] MEDS: immune globulin (Privigen ONC) 40 GM in empty flexible container 1 EACH 24.6000000000000014 GM IV (12:10)
== END 2023-07-21 23:59 | disposition home or self-care (01) ==
PROVIDERS: PCP Family Medicine; Visit Provider Specialist
DX: G61.81 Chronic inflammatory demyelinating polyneuritis
CPT/HCPCS: 96365; 96366; J1459

== ENCOUNTER 2023-08-17 12:30 | Oncology outpatient (recurring) (ONCR) | payer MEDICARE, OTHER, SELFPAY ==
[2023-08-16] VITALS (10 sets, daily range): BP systolic 113–180; BP diastolic 66–95; PULSE 68–91; RESP 16–18; TEMP 35.7–36.6; O2SAT 92–97
[2023-08-16] MEDS: immune globulin (Privigen ONC) 40 GM in empty flexible container 1 EACH IV (14:15)
[2023-08-17] VITALS (10 sets, daily range): BP systolic 144–188; BP diastolic 74–105; PULSE 67–80; RESP 16–18; TEMP 35.9–36.6; O2SAT 94–97
--- NOTE | 2023-08-17 13:08 | PC.NURSE ---
Addendum entered by Donna Hunt RN 08/17/23 13:09: patient also took benadryl 25mg PO at at 1130 Original Note: patient reports that she took tylenol 1000mg PO at 1130.
[2023-08-17] MEDS: immune globulin (Privigen ONC) 40 GM in empty flexible container 1 EACH IV (13:16)
== END 2023-08-17 23:59 | disposition home or self-care (01) ==
PROVIDERS: PCP Family Medicine; Visit Provider Specialist
DX: G61.81 Chronic inflammatory demyelinating polyneuritis; Z79.620 Long term (current) use of immunosuppressive biologic; Z53.9 Procedure and treatment not carried out, unspecified reason
CPT/HCPCS: 96365; 96366; J1459

== ENCOUNTER 2023-09-14 12:00 | Oncology outpatient (recurring) (ONCR) | payer MEDICARE, OTHER, SELFPAY ==
[2023-09-13] VITALS (11 sets, daily range): BP systolic 114–182; BP diastolic 72–96; PULSE 65–80; RESP 16–18; TEMP 36.1–36.9; O2SAT 90–96
[2023-09-13] MEDS: immune globulin (Privigen ONC) 40 GM in empty flexible container 1 EACH IV (12:41)
[2023-09-14 12:08] VITALS: BP 118/79; PULSE 73; RESP 18; TEMP 37.1; O2SAT 95
[2023-09-14] MEDS: immune globulin (Privigen ONC) 40 GM in empty flexible container 1 EACH IV (12:25)
[2023-09-14 12:40] VITALS: BP 134/82; PULSE 73; RESP 18; TEMP 37.3; O2SAT 94
[2023-09-14 12:55] VITALS: BP 112/78; PULSE 72; RESP 17; TEMP 37.1; O2SAT 95
[2023-09-14 13:10] VITALS: BP 132/78; PULSE 74; RESP 17; TEMP 37.1; O2SAT 97
[2023-09-14 14:30] VITALS: BP 130/87; PULSE 77; RESP 17; TEMP 36.6; O2SAT 95
== END 2023-09-14 23:59 | disposition home or self-care (01) ==
PROVIDERS: PCP Family Medicine; Visit Provider Specialist
DX: G61.81 Chronic inflammatory demyelinating polyneuritis; Z53.9 Procedure and treatment not carried out, unspecified reason; Z79.620 Long term (current) use of immunosuppressive biologic
CPT/HCPCS: 96365; 96366; 96413; 96415; J1459

== ENCOUNTER 2023-10-12 11:02 | Oncology outpatient (recurring) (ONCR) | payer MEDICARE, OTHER, SELFPAY ==
[2023-10-11] VITALS (8 sets, daily range): BP systolic 115–151; BP diastolic 74–92; PULSE 69–81; RESP 16–17; TEMP 36.1–36.8; O2SAT 90–95
--- NOTE | 2023-10-11 11:44 | PC.NURSE ---
patient report that premedication was taken at home, tylenol 1000mg PO and Benadryl 25mg PO
[2023-10-11] MEDS: immune globulin (Privigen ONC) 40 GM in empty flexible container 1 EACH IV (11:56)
[2023-10-12] VITALS (9 sets, daily range): BP systolic 116–161; BP diastolic 75–92; PULSE 68–95; RESP 16–17; TEMP 36.1–36.3; O2SAT 90–97
--- NOTE | 2023-10-12 11:21 | PC.NURSE ---
patient reports that premedication was taken at home prior to arrival.
[2023-10-12] MEDS: immune globulin (Privigen ONC) 40 GM in empty flexible container 1 EACH IV (11:22)
== END 2023-10-12 23:59 | disposition home or self-care (01) ==
PROVIDERS: PCP Family Medicine; Visit Provider Specialist
DX: Z53.9 Procedure and treatment not carried out, unspecified reason (principal); G61.81 Chronic inflammatory demyelinating polyneuritis; Z79.899 Other long term (current) drug therapy
CPT/HCPCS: 96365; 96366; J1459

== ENCOUNTER 2023-11-09 11:00 | Oncology outpatient (recurring) (ONCR) | payer MEDICARE, OTHER, SELFPAY ==
[2023-11-08] VITALS (10 sets, daily range): BP systolic 129–172; BP diastolic 78–99; PULSE 66–76; RESP 16; TEMP 36.2–37; O2SAT 90–96
--- NOTE | 2023-11-08 11:11 | PC.NURSE ---
patient reports she took her tylenol and benadryl at home prior to arrival, premedication is not needed prior to infusion.
[2023-11-08] MEDS: immune globulin (Privigen ONC) 40 GM in empty flexible container 1 EACH IV (11:50)
[2023-11-09] VITALS (8 sets, daily range): BP systolic 111–160; BP diastolic 61–97; PULSE 72–81; RESP 16–18; TEMP 36.2–37.1; O2SAT 90–97
[2023-11-09] MEDS: immune globulin (Privigen ONC) 40 GM in empty flexible container 1 EACH IV (12:34)
== END 2023-11-09 23:59 | disposition home or self-care (01) ==
PROVIDERS: PCP Family Medicine; Visit Provider Specialist
DX: G61.81 Chronic inflammatory demyelinating polyneuritis; Z53.9 Procedure and treatment not carried out, unspecified reason; Z79.899 Other long term (current) drug therapy
CPT/HCPCS: 96365; 96366; J1459

== ENCOUNTER → 2023-12-01 10:00 | Outpatient (BNVA) | payer MEDICARE, OTHER, SELFPAY | PROVIDERS: PCP Family Medicine; Visit Provider Nurse Practitioner Family | DX: I25.10 Atherosclerotic heart disease of native coronary artery without angina pectoris (principal); I35.0 Nonrheumatic aortic (valve) stenosis; I10 Essential (primary) hypertension | CPT/HCPCS: 99214 ==

== ENCOUNTER 2023-12-07 11:00 | Oncology outpatient (recurring) (ONCR) | payer MEDICARE, OTHER, SELFPAY ==
[2023-12-06] VITALS (9 sets, daily range): BP systolic 131–156; BP diastolic 77–97; PULSE 64–79; RESP 16; TEMP 36–36.7; O2SAT 90–99
[2023-12-06] MEDS: immune globulin (Privigen ONC) 40 GM in empty flexible container 1 EACH IV (12:36)
[2023-12-07] VITALS (10 sets, daily range): BP systolic 145–175; BP diastolic 78–100; PULSE 69–85; RESP 16–17; TEMP 36.3–37; O2SAT 91–96
--- NOTE | 2023-12-07 11:25 | PC.NURSE ---
patient reports that she took premedication of tylenol and benadryl prior to arrival.
[2023-12-07] MEDS: immune globulin (Privigen ONC) 40 GM in empty flexible container 1 EACH IV (11:44)
== END 2023-12-07 23:59 | disposition home or self-care (01) ==
PROVIDERS: PCP Family Medicine; Visit Provider Nurse Practitioner Family
DX: Z53.9 Procedure and treatment not carried out, unspecified reason (principal); G61.81 Chronic inflammatory demyelinating polyneuritis; Z79.899 Other long term (current) drug therapy
CPT/HCPCS: 96365; 96366; J1459

== ENCOUNTER 2024-01-04 11:06 | Oncology outpatient (recurring) (ONCR) | payer MEDICARE, OTHER, SELFPAY ==
[2024-01-03] VITALS (8 sets, daily range): BP systolic 124–156; BP diastolic 65–97; PULSE 67–88; RESP 16; TEMP 35.9–37; O2SAT 92–98
[2024-01-03] MEDS: immune globulin (Privigen ONC) 40 GM in empty flexible container 1 EACH IV (12:28)
[2024-01-04 12:07] VITALS: BP 117/78; PULSE 80; RESP 16; TEMP 36.2; O2SAT 92
[2024-01-04] MEDS: immune globulin (Privigen ONC) 40 GM in empty flexible container 1 EACH IV (12:09)
[2024-01-04 12:25] VITALS: BP 121/71; PULSE 78; RESP 16; TEMP 35.9; O2SAT 93
[2024-01-04 12:58] VITALS: BP 124/77; PULSE 76; RESP 16; TEMP 36.3; O2SAT 91
[2024-01-04 13:13] VITALS: BP 117/72; PULSE 88; RESP 17; TEMP 36.3; O2SAT 93
[2024-01-04 13:30] VITALS: BP 123/79; PULSE 77; RESP 17; TEMP 36.2; O2SAT 92
[2024-01-04 15:00] VITALS: BP 123/79; PULSE 77; RESP 17; TEMP 36.2; O2SAT 92
== END 2024-01-04 23:59 | disposition home or self-care (01) ==
PROVIDERS: PCP Family Medicine; Visit Provider Nurse Practitioner Family
DX: Z53.9 Procedure and treatment not carried out, unspecified reason (principal); G61.81 Chronic inflammatory demyelinating polyneuritis; Z79.899 Other long term (current) drug therapy
CPT/HCPCS: 96365; 96366; J1459

== ENCOUNTER 2024-02-01 11:00 | Oncology outpatient (recurring) (ONCR) | payer MEDICARE, OTHER, SELFPAY ==
[2024-01-31] VITALS (8 sets, daily range): BP systolic 125–143; BP diastolic 73–84; PULSE 69–76; RESP 16–17; TEMP 36.1–36.9; O2SAT 90–96
--- NOTE | 2024-01-31 11:47 | PC.NURSE ---
patient reports that she took her premedication at home prior to arrival, no premedication will be given prior to infusion.
[2024-01-31] MEDS: immune globulin (Privigen ONC) 40 GM in empty flexible container 1 EACH IV (12:23)
[2024-02-01] VITALS (8 sets, daily range): BP systolic 117–152; BP diastolic 61–91; PULSE 61–72; RESP 16–18; TEMP 36.1–36.7; O2SAT 92–97
[2024-02-01] MEDS: immune globulin (Privigen ONC) 40 GM in empty flexible container 1 EACH IV (11:40)
== END 2024-02-01 23:59 | disposition home or self-care (01) ==
PROVIDERS: PCP Family Medicine; Visit Provider Internal Medicine Medical Oncology
DX: G61.81 Chronic inflammatory demyelinating polyneuritis (principal); Z79.899 Other long term (current) drug therapy; Z53.9 Procedure and treatment not carried out, unspecified reason
CPT/HCPCS: 96365; 96366; 96413; 96415; J1459

== ENCOUNTER 2024-02-29 11:00 | Oncology outpatient (recurring) (ONCR) | payer MEDICARE, OTHER, SELFPAY ==
[2024-02-28] MEDS: immune globulin (Privigen ONC) 40 GM in empty flexible container 1 EACH IV (11:33)
[2024-02-28 11:35] VITALS: BP 158/92; PULSE 67; RESP 18; TEMP 36.6; O2SAT 94
[2024-02-28 11:50] VITALS: BP 152/90; PULSE 68; RESP 17; TEMP 36.6; O2SAT 94
[2024-02-28 13:24] VITALS: BP 132/84; PULSE 76; O2SAT 92
[2024-02-28 14:40] VITALS: BP 147/83; PULSE 75; RESP 16; TEMP 36.3; O2SAT 93
[2024-02-29 11:23] VITALS: BP 154/92; PULSE 74; RESP 17; TEMP 36.9; O2SAT 96
[2024-02-29] MEDS: immune globulin (Privigen ONC) 40 GM in empty flexible container 1 EACH IV (11:55)
[2024-02-29 12:00] VITALS: BP 158/92; PULSE 74; RESP 17; TEMP 36.9; O2SAT 96
[2024-02-29 12:15] VITALS: BP 149/76; PULSE 70; RESP 16; TEMP 36.4; O2SAT 95
[2024-02-29 12:45] VITALS: BP 139/84; PULSE 68; RESP 16; TEMP 36.6; O2SAT 95
[2024-02-29 13:20] VITALS: BP 146/79; PULSE 72; RESP 17; TEMP 36.8; O2SAT 96
[2024-02-29 14:20] VITALS: BP 153/91; PULSE 73; RESP 17; TEMP 36.6; O2SAT 96
--- NOTE | 2024-02-29 16:35 | PC.NURSE ---
[id number] Patient reports that she took oral pre-medications at 1030 prior to coming in for treatment today. Patient refuses pre-medications as ordered per Dr. Mitchell. _Basilio Dallas
== END 2024-02-29 23:59 | disposition home or self-care (01) ==
PROVIDERS: PCP Family Medicine; Visit Provider Internal Medicine
DX: G61.81 Chronic inflammatory demyelinating polyneuritis (principal); Z79.899 Other long term (current) drug therapy; Z53.9 Procedure and treatment not carried out, unspecified reason
CPT/HCPCS: 96365; 96366; J1459

== ENCOUNTER → 2024-03-19 15:22 | Outpatient (BNVA) | payer MEDICARE, OTHER, SELFPAY | PROVIDERS: PCP Family Medicine; Visit Provider Specialist | DX: G61.81 Chronic inflammatory demyelinating polyneuritis (principal); R74.8 Abnormal levels of other serum enzymes; K76.0 Fatty (change of) liver, not elsewhere classified; E11.9 Type 2 diabetes mellitus without complications | CPT/HCPCS: 99214 ==

== ENCOUNTER 2024-04-18 11:30 | Oncology outpatient (recurring) (ONCR) | payer MEDICARE, OTHER, SELFPAY ==
[2024-04-17] MEDS: immune globulin (Gamunex-C) 40 GM in empty flexible container 1 EACH IV (09:53)
[2024-04-17 09:58] VITALS: BP 135/80; PULSE 68; RESP 18; TEMP 36.8; O2SAT 94
[2024-04-17 11:20] VITALS: BP 137/80; PULSE 60; RESP 17; TEMP 36.5; O2SAT 95
[2024-04-17 11:37] VITALS: BP 149/88; PULSE 63; RESP 17; TEMP 36.6; O2SAT 96
[2024-04-17 11:55] VITALS: BP 149/88; PULSE 67; RESP 17; TEMP 37.2; O2SAT 93
[2024-04-18] MEDS: immune globulin (Gamunex-C) 40 GM in empty flexible container 1 EACH IV (12:44)
[2024-04-18 12:50] VITALS: BP 151/88; PULSE 99; RESP 17; TEMP 36.5; O2SAT 95
[2024-04-18 13:05] VITALS: BP 155/88
[2024-04-18 13:20] VITALS: BP 111/68
[2024-04-18 13:55] VITALS: BP 134/74; PULSE 73; RESP 17; TEMP 36.7; O2SAT 96
[2024-04-18 14:30] VITALS: BP 154/88; PULSE 70; RESP 18; TEMP 36.7; O2SAT 95
[2024-04-18 15:08] VITALS: BP 162/76; PULSE 71; RESP 18; TEMP 36.8; O2SAT 96
== END 2024-04-18 23:59 | disposition home or self-care (01) ==
PROVIDERS: PCP Family Medicine; Visit Provider Specialist
DX: Z53.9 Procedure and treatment not carried out, unspecified reason (principal); G61.81 Chronic inflammatory demyelinating polyneuritis; Z79.620 Long term (current) use of immunosuppressive biologic
CPT/HCPCS: 96365; 96366; J1561

== ENCOUNTER 2024-05-16 12:00 | Oncology outpatient (recurring) (ONCR) | payer MEDICARE, OTHER, SELFPAY ==
[2024-05-15 12:30] VITALS: BP 147/88; PULSE 103; RESP 18; TEMP 36.8; O2SAT 90
[2024-05-15] MEDS: immune globulin (Gamunex-C) 40 GM in empty flexible container 1 EACH IV (12:30)
[2024-05-15 12:45] VITALS: BP 123/76; PULSE 101; RESP 17; TEMP 36.2; O2SAT 90
[2024-05-15 13:15] VITALS: BP 121/68; PULSE 88; RESP 17; TEMP 36.5; O2SAT 88
[2024-05-15 15:12] VITALS: BP 155/98; PULSE 82; RESP 16; TEMP 36.8; O2SAT 95
[2024-05-16 13:00] VITALS: BP 133/78; PULSE 75; RESP 18; TEMP 37.2; O2SAT 94
[2024-05-16] MEDS: immune globulin (Gamunex-C) 40 GM in empty flexible container 1 EACH IV (13:03)
[2024-05-16 15:50] VITALS: BP 153/88; PULSE 75; RESP 18; TEMP 36.1; O2SAT 97
== END 2024-05-16 23:59 | disposition home or self-care (01) ==
PROVIDERS: PCP Family Medicine; Visit Provider Specialist
DX: Z53.9 Procedure and treatment not carried out, unspecified reason (principal); G61.81 Chronic inflammatory demyelinating polyneuritis; Z79.899 Other long term (current) drug therapy
CPT/HCPCS: 96365; 96366; J1561

== ENCOUNTER → 2024-06-11 14:34 | Outpatient (BNVA) | payer MEDICARE, OTHER, SELFPAY | PROVIDERS: PCP Family Medicine; Visit Provider Internal Medicine | DX: I25.10 Atherosclerotic heart disease of native coronary artery without angina pectoris (principal); I10 Essential (primary) hypertension; E78.5 Hyperlipidemia, unspecified | CPT/HCPCS: 99214 ==

== ENCOUNTER 2024-06-13 11:00 | Oncology outpatient (recurring) (ONCR) | payer MEDICARE, OTHER, SELFPAY ==
[2024-06-12] MEDS: diphenhydrAMINE 25 mg Capsule PO (11:41)
[2024-06-12] MEDS: acetaminophen 325 mg Tablet 650 MG PO (11:41)
[2024-06-12] MEDS: immune globulin (Gamunex-C) 40 GM in empty flexible container 1 EACH IV (12:18)
[2024-06-12 12:19] VITALS: BP 137/76; PULSE 75; RESP 16; TEMP 36.6; O2SAT 96
[2024-06-12 12:35] VITALS: BP 117/71; PULSE 81; RESP 18; TEMP 36.4; O2SAT 94
[2024-06-12 13:40] VITALS: BP 138/77; PULSE 72; RESP 17; TEMP 36.2; O2SAT 92
[2024-06-12 14:30] VITALS: BP 133/78; PULSE 70; RESP 18; TEMP 36.6; O2SAT 93
[2024-06-12 14:31] VITALS: BP 133/78; PULSE 70; RESP 18; TEMP 36.6; O2SAT 93
[2024-06-13 11:30] VITALS: BP 154/79; PULSE 54; RESP 16; TEMP 36.8; O2SAT 92
[2024-06-13] MEDS: immune globulin (Gamunex-C) 40 GM in empty flexible container 1 EACH IV (11:35)
[2024-06-13 11:45] VITALS: BP 143/73; PULSE 73; RESP 16; TEMP 36.7; O2SAT 95
[2024-06-13 12:50] VITALS: BP 144/89; PULSE 69; RESP 16; TEMP 36.3; O2SAT 94
[2024-06-13 14:58] VITALS: BP 131/87; PULSE 75; RESP 16; TEMP 36.6; O2SAT 96
== END 2024-06-13 23:59 | disposition home or self-care (01) ==
PROVIDERS: PCP Family Medicine; Visit Provider Specialist
DX: G61.81 Chronic inflammatory demyelinating polyneuritis (principal); Z79.620 Long term (current) use of immunosuppressive biologic; Z53.9 Procedure and treatment not carried out, unspecified reason
CPT/HCPCS: 96365; 96366; J1561; J9999

== ENCOUNTER 2024-07-11 11:00 | Oncology outpatient (recurring) (ONCR) | payer MEDICARE, OTHER, SELFPAY ==
[2024-07-10 11:40] VITALS: BP 130/78; PULSE 61; RESP 16; TEMP 36.8; O2SAT 93
[2024-07-10] MEDS: immune globulin (Gamunex-C) 40 GM in empty flexible container 1 EACH IV (11:40)
[2024-07-10 12:00] VITALS: BP 160/77; PULSE 63; RESP 16; TEMP 36.8; O2SAT 94
[2024-07-10 12:30] VITALS: BP 135/75; PULSE 64; RESP 16; TEMP 36.8; O2SAT 93
[2024-07-10 14:03] VITALS: BP 144/75; PULSE 69; RESP 17; TEMP 36.9; TEMP 37.1; O2SAT 93; O2SAT 94
[2024-07-11 11:35] VITALS: BP 149/75; PULSE 72; RESP 16; TEMP 36.4; O2SAT 94
[2024-07-11] MEDS: immune globulin (Gamunex-C) 40 GM in empty flexible container 1 EACH IV (12:38)
[2024-07-11 16:32] VITALS: BP 146/76; PULSE 76; RESP 16; TEMP 36.5; O2SAT 96
== END 2024-07-11 23:59 | disposition home or self-care (01) ==
PROVIDERS: PCP Family Medicine; Visit Provider Specialist
DX: Z53.9 Procedure and treatment not carried out, unspecified reason (principal); G61.81 Chronic inflammatory demyelinating polyneuritis; Z79.620 Long term (current) use of immunosuppressive biologic
CPT/HCPCS: 96365; 96366; J1561

== ENCOUNTER 2024-08-08 10:56 | Oncology outpatient (recurring) (ONCR) | payer MEDICARE, OTHER, SELFPAY ==
--- NOTE | 2024-07-23 12:00 | USCV_ITS ---
Melyssa Swartz Age: 73 Gender: F : 1950 Exam Date: 07/23/2024 12:03 Ordering Phys: Tone Lang M.D ([email or web address]) Technologist: KARI Exam Location: [facility] – [place] Indication: BP: 126 / 88 HR: 71 Rhythm: Sinus Technical Quality: Adequate MEASUREMENTS (Male / Female) Normal Values 2D ECHO LV Diastolic Diameter PLAX 5.2 cm 4.2 - 5.9 / 3.9 - 5.3 cm IVS Diastolic Thickness 1.0 cm 0.6 - 1.0 / 0.6 - 0.9 cm IVS Systolic Thickness 1.5 cm LVPW Diastolic Thickness 0.9 cm 0.6 - 1.0 / 0.6 - 0.9 cm LVPW Systolic Thickness 1.2 cm LVOT Diameter 2.0 cm LV Ejection Fraction 2D Teich 47.3 % LV Ejection Fraction MOD 4C 50.0 % LV Ejection Fraction MOD 2C 51.8 % LV Ejection Fraction 2C AL 52.1 % LA Diameter 3.6 cm RA Systolic Volume 4C AL 41.4 ml RA Systolic Volume 4C MOD 40.2 ml LA Sys Volume AL 43.3 cm cubed LA Sys Volume Index AL 21.8 cm cubed/m squared Aorta at Sinotubular Diameter 2.3 cm IVC Diameter 2.0 cm M-MODE LA Ao Ratio MM 2.4 AV Cusp Separation MM 0.8 cm DOPPLER AV Peak Velocity 210.7 cm/s LVOT Peak Velocity 75.0 cm/s AV Area Cont Eq vti 1.4 cm squared AV Area Cont Eq pk 1.1 cm squared MV Peak Velocity 104.0 cm/s MV Area PHT 4.6 cm squared Mitral E to A Ratio 0.6 TV Peak Velocity 212.0 cm/s TR Peak Velocity 256.0 cm/s TR Peak Gradient 26.2 mmHg TV Peak E Velocity 69.0 cm/s PV Peak Velocity 146.0 cm/s FINDINGS Left Ventricle Left atrial normal size. LV systolic function is normal with EF of 50-55%. No regional wall motion abnormalities are seen. No regional wall motion abnormalities are seen. Grade 1 diastolic dysfunction. Right Ventricle Normal in size and function Right Atrium Normal in size Left Atrium Normal in size Mitral Valve Mild mitral annular calcification. Trace mitral regurgitation Aortic Valve Aortic valve is thickened. Mild aortic stenosis with aortic valve area 1.21 cm squared and mean gradient of 8.6 mmHg Tricuspid Valve Mild tricuspid regurgitation. Pulmonary artery systolic pressure is normal. Pulmonic Valve Not well visualized Pericardium Normal Aorta Normal in size IVC Appears to be normal CONCLUSIONS LV systolic function is normal with EF of 50-55%. Grade 1 diastolic dysfunction. Trace mitral regurgitation. Mild aortic stenosis. Mild tricuspid regurgitation. Tone Lang MD (Electronically Signed) Final Date: 08 August 2024 09:50 S
[2024-08-07 11:12] VITALS: BP 135/74; PULSE 70; TEMP 36.5; O2SAT 92
[2024-08-07] MEDS: immune globulin (Gamunex-C) 40 GM in empty flexible container 1 EACH IV (11:48)
[2024-08-07 12:40] VITALS: BP 129/95; PULSE 94; RESP 16; TEMP 36.6; O2SAT 92
[2024-08-07 14:30] VITALS: BP 118/73; PULSE 75; RESP 16; TEMP 35.8; O2SAT 92
[2024-08-08] MEDS: immune globulin (Gamunex-C) 40 GM in empty flexible container 1 EACH IV (12:03)
== END 2024-08-08 23:59 | disposition home or self-care (01) ==
PROVIDERS: PCP Family Medicine; Visit Provider Internal Medicine
DX: G61.81 Chronic inflammatory demyelinating polyneuritis (principal); Z79.620 Long term (current) use of immunosuppressive biologic
CPT/HCPCS: 93306; 96365; 96366; J1561

== ENCOUNTER 2024-09-05 10:55 | Oncology outpatient (recurring) (ONCR) | payer MEDICARE, OTHER, SELFPAY ==
[2024-09-04 11:27] VITALS: BP 155/85; PULSE 66; TEMP 36.2; O2SAT 96
[2024-09-04] MEDS: immune globulin (Gamunex-C) 40 GM in empty flexible container 1 EACH IV (11:37)
[2024-09-04 11:53] VITALS: BP 155/69; PULSE 71; TEMP 36.5; O2SAT 92
[2024-09-04 13:00] VITALS: BP 148/78; PULSE 69; TEMP 36.3; O2SAT 93
[2024-09-04 15:47] VITALS: BP 148/74; PULSE 94; RESP 16; TEMP 36.5; O2SAT 96
--- NOTE | 2024-09-05 11:37 | PC.NURSE ---
Patient took benadryl and tylenol at home
[2024-09-05] MEDS: immune globulin (Gamunex-C) 40 GM in empty flexible container 1 EACH IV (11:51)
[2024-09-05 14:15] VITALS: BP 172/98; PULSE 74; RESP 17; TEMP 36; O2SAT 94
== END 2024-09-05 23:59 | disposition home or self-care (01) ==
PROVIDERS: PCP Family Medicine; Visit Provider Internal Medicine
DX: G61.81 Chronic inflammatory demyelinating polyneuritis (principal); Z79.899 Other long term (current) drug therapy
CPT/HCPCS: 96365; 96366; J1561

== ENCOUNTER 2024-10-03 11:05 | Oncology outpatient (recurring) (ONCR) | payer MEDICARE, OTHER, SELFPAY ==
[2024-10-02 10:05] VITALS: BP 156/89; PULSE 65; RESP 17; TEMP 36.6; O2SAT 97
[2024-10-02] MEDS: immune globulin (Gamunex-C) 40 GM in empty flexible container 1 EACH IV (10:06)
[2024-10-02 12:50] VITALS: BP 176/83; PULSE 74; TEMP 35.9
[2024-10-03] MEDS: immune globulin (Gamunex-C) 40 GM in empty flexible container 1 EACH IV (11:53)
[2024-10-03 13:00] VITALS: BP 142/82; PULSE 71; RESP 16; TEMP 36.9; O2SAT 94
== END 2024-10-03 23:59 | disposition home or self-care (01) ==
PROVIDERS: PCP Family Medicine; Visit Provider Internal Medicine
DX: G61.81 Chronic inflammatory demyelinating polyneuritis; Z79.620 Long term (current) use of immunosuppressive biologic; Z79.899 Other long term (current) drug therapy; Z53.9 Procedure and treatment not carried out, unspecified reason
CPT/HCPCS: 96365; 96366; J1561

== ENCOUNTER 2024-10-31 11:00 | Oncology outpatient (recurring) (ONCR) | payer MEDICARE, OTHER, SELFPAY ==
[2024-10-30] MEDS: immune globulin (Gamunex-C) 40 GM in empty flexible container 1 EACH IV (11:25)
[2024-10-30 11:31] VITALS: BP 162/67; PULSE 65; TEMP 36.1
[2024-10-30 11:42] VITALS: BP 154/95; PULSE 65; RESP 17; TEMP 36.2; O2SAT 96
[2024-10-30 11:57] VITALS: BP 121/80; PULSE 65; RESP 16; TEMP 36.6; O2SAT 94
[2024-10-30 12:45] VITALS: BP 135/74; PULSE 62; RESP 16; TEMP 36.2; O2SAT 92
[2024-10-30 14:01] VITALS: BP 143/87; PULSE 70; RESP 17; TEMP 36.4; O2SAT 93
[2024-10-31 11:10] VITALS: BP 148/78; PULSE 67; RESP 17; TEMP 36.4; O2SAT 97
[2024-10-31 12:25] VITALS: BP 148/85; PULSE 67; RESP 18; TEMP 36.3; O2SAT 94
[2024-10-31] MEDS: immune globulin (Gamunex-C) 40 GM in empty flexible container 1 EACH IV (12:30)
[2024-10-31 14:25] VITALS: BP 173/91; PULSE 70; RESP 17; TEMP 36.4; O2SAT 97
== END 2024-10-31 23:59 | disposition home or self-care (01) ==
PROVIDERS: PCP Family Medicine; Visit Provider Internal Medicine
DX: G61.81 Chronic inflammatory demyelinating polyneuritis; Z79.620 Long term (current) use of immunosuppressive biologic; Z79.899 Other long term (current) drug therapy; Z53.9 Procedure and treatment not carried out, unspecified reason
CPT/HCPCS: 96365; 96366; J1561

== ENCOUNTER 2024-11-28 11:00 | Oncology outpatient (recurring) (ONCR) | payer MEDICARE, OTHER, SELFPAY ==
[2024-11-27] MEDS: immune globulin (Gamunex-C) 40 GM in empty flexible container 1 EACH IV (11:57)
[2024-11-27 12:00] VITALS: BP 142/82; PULSE 76; RESP 16
[2024-11-27 12:15] VITALS: BP 139/84; PULSE 60; RESP 16; TEMP 36.4; O2SAT 92
[2024-11-27 14:33] VITALS: BP 178/103; PULSE 62; O2SAT 93
--- NOTE | 2024-11-27 14:34 | PC.NURSE ---
Addendum entered by Анна Reynolds RN 11/27/24 14:37: Pt also states her BP always goes back down after she gets home. Pt did not want to stay any longer to see if BP will drop. Original Note: Pts BP elevated to 178/103. Pt states she will take her BP medication when she gets home. Pt educated on risks of hypertension and to go to ER if she begins to feel bad.
[2024-11-28 11:37] VITALS: BP 156/86; PULSE 60; RESP 16; TEMP 36.8; O2SAT 94
[2024-11-28] MEDS: immune globulin (Gamunex-C) 40 GM in empty flexible container 1 EACH IV (11:37)
[2024-11-28 11:51] VITALS: BP 159/80; PULSE 59; RESP 16; TEMP 36.8; O2SAT 92
[2024-11-28 14:08] VITALS: BP 172/96; PULSE 77; RESP 16; TEMP 36.5; O2SAT 93
== END 2024-11-28 23:59 | disposition home or self-care (01) ==
PROVIDERS: PCP Family Medicine; Visit Provider Internal Medicine
DX: G61.81 Chronic inflammatory demyelinating polyneuritis; Z79.620 Long term (current) use of immunosuppressive biologic; Z79.899 Other long term (current) drug therapy; Z53.9 Procedure and treatment not carried out, unspecified reason
CPT/HCPCS: 96365; 96366; J1561

== ENCOUNTER 2024-12-26 11:00 | Oncology outpatient (recurring) (ONCR) | payer MEDICARE, OTHER, SELFPAY ==
[2024-12-25 11:39] VITALS: BP 126/80; PULSE 65; RESP 17; TEMP 36.5; O2SAT 92
[2024-12-25] MEDS: immune globulin (Gamunex-C) 40 GM in empty flexible container 1 EACH IV (11:39)
[2024-12-25 11:54] VITALS: BP 124/79; PULSE 61; RESP 17; TEMP 36.8; O2SAT 95
[2024-12-25 13:55] VITALS: BP 163/96; PULSE 71; RESP 17; TEMP 36.1; O2SAT 96
[2024-12-26] MEDS: immune globulin (Gamunex-C) 40 GM in empty flexible container 1 EACH IV (11:10)
[2024-12-26 11:14] VITALS: BP 147/84; PULSE 75; TEMP 36.1; O2SAT 95
[2024-12-26 13:35] VITALS: BP 156/96; PULSE 74; TEMP 36.8; O2SAT 95
== END 2024-12-26 23:59 | disposition home or self-care (01) ==
PROVIDERS: PCP Family Medicine; Visit Provider Internal Medicine
DX: G61.81 Chronic inflammatory demyelinating polyneuritis; Z79.620 Long term (current) use of immunosuppressive biologic; Z79.899 Other long term (current) drug therapy; Z53.9 Procedure and treatment not carried out, unspecified reason
CPT/HCPCS: 96365; 96366; J1561

== ENCOUNTER 2025-01-23 10:46 | Oncology outpatient (recurring) (ONCR) | payer MEDICARE, OTHER, SELFPAY ==
[2025-01-22 11:11] VITALS: BP 133/79; PULSE 65; RESP 16; TEMP 35.9
[2025-01-22] MEDS: immune globulin (Gamunex-C) 40 GM in empty flexible container 1 EACH IV (11:45)
[2025-01-22 11:48] VITALS: BP 132/79; PULSE 68; RESP 16; TEMP 36.5; O2SAT 96
[2025-01-22 12:03] VITALS: BP 134/81; PULSE 60; RESP 16; TEMP 36.1
[2025-01-22 13:00] VITALS: BP 153/83; PULSE 67; RESP 16; TEMP 36.3; O2SAT 94
[2025-01-22 13:53] VITALS: BP 151/97; PULSE 72; RESP 17; TEMP 36.7; O2SAT 96
[2025-01-23 11:24] VITALS: BP 157/100; PULSE 64; RESP 16; TEMP 36.4; O2SAT 95
[2025-01-23] MEDS: immune globulin (Gamunex-C) 40 GM in empty flexible container 1 EACH IV (11:25)
[2025-01-23 11:40] VITALS: BP 156/97; PULSE 61; RESP 16; TEMP 36.3; O2SAT 94
[2025-01-23 12:10] VITALS: BP 149/91; PULSE 57; RESP 16; TEMP 36.3; O2SAT 93
[2025-01-23 13:48] VITALS: BP 163/94; PULSE 70; RESP 16; TEMP 36.7; O2SAT 93
== END 2025-01-23 23:59 | disposition home or self-care (01) ==
PROVIDERS: PCP Family Medicine; Visit Provider Internal Medicine
DX: G61.81 Chronic inflammatory demyelinating polyneuritis (principal); Z79.899 Other long term (current) drug therapy
CPT/HCPCS: 96365; 96366; J1561